=== PATIENT | male | born 1975 | race Caucasian/White ===

== ENCOUNTER 2021-05-19 19:17 | Inpatient (IN) | payer MEDICAID, OTHER ==
[~2021-05-19] VITALS: Ht 165.1 cm; Wt 76.7 kg
[2021-05-19] MEDS ORDERED: SODIUM CHLORIDE 0.9% 500 ML IV ONE (23:45)
[2021-05-20] MEDS: ACETAMINOPHEN 650MG/20.3ML UDC GT PRN (00:04)
[2021-05-20 00:44] LABS: HEMATOCRIT 37.6 % (42.0-52.0); HEMOGLOBIN 12.8 g/dL (14.0-18.0); MEAN CORPUSCULAR HEMOGLOBIN 31.3 pg (28.0-32.0); MEAN CORPUSCULAR VOLUME 91.7 fL (80.0-94.0); PLATELET 265 x1000/uL (130-400); RED CELL DISTRIBUTION WIDTH 13.8 % (11.6-14.6)
[2021-05-20 01:13] LABS: CHLORIDE 106 mEq/L (98-107)
[2021-05-20 01:17] LABS: ETHANOL BLOOD < 10 mg/dL
[2021-05-20 02:56] LABS: *AMPHETAMINES SCREEN URINE NEGATIVE (NEGATIVE); *BARBITURATES SCREEN URINE NEGATIVE (NEGATIVE); *BENZODIAZEPINES SCREEN URINE NEGATIVE (NEGATIVE); *COCAINE SCREEN URINE NEGATIVE (NEGATIVE)
[2021-05-20 02:57] LABS: CANNABINOID URINE SCREEN NEGATIVE (NEGATIVE); METHADONE URINE SCREEN NEGATIVE (NEGATIVE); OPIATES URINE SCREEN NEGATIVE (NEGATIVE); PHENCYCLIDINE URINE SCREEN NEGATIVE (NEGATIVE)
[2021-05-20] MEDS ORDERED: HYDRALAZINE 20MG/ML VIAL IV PRN (03:15)
[2021-05-20 05:38] LABS: BASOPHILS % 0.4 % (0.0-2.0); EOSINOPHILS % 0.1 % (0.0-5.0); HEMATOCRIT. 38.1 % (42.0-52.0); HEMOGLOBIN. 13.5 g/dL (14.0-18.0); LYMPHOCYTES % 12.7 % (20.0-50.0); MEAN CORPUSCULAR HEMOGLOBIN 31.8 pg (28.0-32.0); MEAN CORPUSCULAR VOLUME 90.2 fL (80.0-94.0); MEAN PLATELET VOLUME 8.2 fl (7.4-10.4); NEUTROPHILS % 79.8 % (40.0-76.0); PLATELET 261 x1000/uL (130-400); RED BLOOD CELL COUNT 4.23 mill/uL (4.7-6.1); RED CELL DISTRIBUTION WIDTH 13.8 % (11.6-14.6)
[2021-05-20 06:11] LABS: CHLORIDE 107 mEq/L (98-107)
[2021-05-20] MEDS ORDERED: OXYCODONE HCL 5MG TABLET PO PRN (07:15)
[2021-05-20] MEDS ORDERED: MORPHINE SULFATE 2 MG/ML CPJ (NOT FOR IM USE) IV PRN (07:15)
[2021-05-20] MEDS: SODIUM CHLORIDE 0.9% 1,000 ML IV SCH (11:00)
[2021-05-20 11:20] VITALS: BP 155/100
[2021-05-20 12:00] VITALS: BP 155/100
[2021-05-20 16:00] VITALS: BP 144/90
[2021-05-20] MEDS: MORPHINE SULFATE 2 MG/ML CPJ (NOT FOR IM USE) IV PRN ×2 (16:40→21:18)
[2021-05-20 20:00] VITALS: BP 136/86
[2021-05-21] VITALS: BP 144/83
[2021-05-21] MEDS: SODIUM CHLORIDE 0.9% 1,000 ML IV SCH ×2 (00:28→16:30)
[2021-05-21 04:00] VITALS: BP 128/86
[2021-05-21] MEDS ORDERED: POLYMYXIN B SULFATE 500000 UNITS/VIAL ONE (06:54)
[2021-05-21] MEDS ORDERED: BUPIVACAINE HCL 0.5% (5MG/ML) 50ML ONE (06:55)
[2021-05-21 08:00] VITALS: BP 140/90
[2021-05-21] MEDS ORDERED: MORPHINE SULFATE/PF 1MG/ML 10ML AMP ONE (10:52)
[2021-05-21] MEDS ORDERED: ROCURONIUM BROMIDE 10MG/ML VIAL 5ML IV ONE (11:08)
[2021-05-21] MEDS ORDERED: CEFAZOLIN SODIUM 1000MG/VIAL ONE (11:14)
[2021-05-21] MEDS ORDERED: DEXAMETHASONE 4MG/ML 1ML VIAL ONE (11:15)
[2021-05-21] MEDS ORDERED: GLYCOPYRROLATE 0.2 MG/ML 2ML VIAL ONE ×2 (11:37→11:51)
[2021-05-21] MEDS ORDERED: NEOSTIGMINE METHYLSULFATE 1MG/ML 10 ML VIAL ONE (11:51)
[2021-05-21] MEDS ORDERED: KETOROLAC 30MG/ML VIAL ONE (11:54)
[2021-05-21] MEDS ORDERED: MEPERIDINE HCL/PF 25MG/ML CPJ IV PRN (12:00)
[2021-05-21] MEDS ORDERED: LABETALOL 5MG/ML SYR 20 MG/4 ML SYRINGE IV PRN (12:00)
[2021-05-21] MEDS ORDERED: ONDANSETRON HCL 4MG/2ML INJ IV PRN (12:00)
[2021-05-21] MEDS: HYDROMORPHONE HCL/PF 2MG/ML CPJ IV PRN ×4 (12:17→12:42)
[2021-05-21] MEDS ORDERED: DIPHENHYDRAMINE INJ IV PRN (12:30)
[2021-05-21] MEDS ORDERED: HYDROMORPHONE PCA 10MG/50ML IV PRN (12:30)
[2021-05-21] MEDS ORDERED: ONDANSETRON INJ IV PRN (12:30)
[2021-05-21] MEDS ORDERED: NALOXONE INJ IV PRN (12:30)
[2021-05-21] MEDS ORDERED: NALOXONE HCL 0.4MG/ML VIAL IV PRN (15:15)
[2021-05-21] MEDS ORDERED: HYDRALAZINE 10 MG in SODIUM CHLORIDE 0.9% 49.5 ML IV PRN (15:15)
[2021-05-21 16:00] VITALS: BP 111/72
[2021-05-21] MEDS ORDERED: METOPROLOL TARTRATE 5MG/5ML VIAL IV NR (23:20)
[2021-05-21 23:24] VITALS: BP 124/93
[2021-05-22 02:58] LABS: CHLORIDE 107 mEq/L (98-107)
[2021-05-22 04:00] VITALS: BP 123/79
[2021-05-22] MEDS ORDERED: METOPROLOL TARTRATE 5MG/5ML VIAL IV SCH (05:15)
[2021-05-22 07:42] LABS: BASOPHILS % 0.2 % (0.0-2.0); HEMATOCRIT. 31.1 % (42.0-52.0); HEMOGLOBIN. 10.9 g/dL (14.0-18.0); LYMPHOCYTES % 9.1 % (20.0-50.0); MEAN CORPUSCULAR VOLUME 91.2 fL (80.0-94.0); MEAN PLATELET VOLUME 9.4 fl (7.4-10.4); MONOCYTES % 10.8 % (2.0-8.0); NEUTROPHILS % 79.9 % (40.0-76.0); PLATELET 300 x1000/uL (130-400); RED BLOOD CELL COUNT 3.41 mill/uL (4.7-6.1); RED CELL DISTRIBUTION WIDTH 13.6 % (11.6-14.6)
[2021-05-22 08:00] VITALS: BP 131/90
[2021-05-22] MEDS: ACETAMINOPHEN 650MG/20.3ML UDC GT PRN ×2 (08:40→17:28)
[2021-05-22] MEDS: SODIUM CHLORIDE 0.9% 1,000 ML IV SCH ×2 (08:42→14:25)
[2021-05-22 12:00] VITALS: BP 145/91
[2021-05-22 16:00] VITALS: BP 151/97
[2021-05-22] MEDS ORDERED: VANCOMYCIN 1250MG in DEXTROSE 5% WATER 250ML IV NR (20:00)
[2021-05-22 20:18] VITALS: BP 159/84
[2021-05-22] MEDS ORDERED: SODIUM CHLORIDE 0.9% 500 ML IV ONE (21:00)
[2021-05-22 21:50] LABS: HEMATOCRIT 27.2 % (42.0-52.0); HEMOGLOBIN 9.4 g/dL (14.0-18.0); MEAN CORPUSCULAR HEMOGLOBIN 31.6 pg (28.0-32.0); MEAN CORPUSCULAR VOLUME 91.8 fL (80.0-94.0); PLATELET 250 x1000/uL (130-400); RED BLOOD CELL COUNT 2.97 mill/uL (4.7-6.1); RED CELL DISTRIBUTION WIDTH 13.6 % (11.6-14.6)
[2021-05-22] MEDS: DEXT 5%/0.45% NACL KCL 20MEQ/L 1,000 ML IV SCH (22:52)
[2021-05-22] MEDS: PIPERACILLIN/TAZOBACTAM 3.375 G in DEXTROSE 5% WATER 50 ML IV SCH (22:52)
[2021-05-23 00:30] VITALS: BP_SYST 139; BP_SYST 159; BP_DIAS 84; BP_DIAS 85
[2021-05-23 04:30] VITALS: BP 136/88
[2021-05-23] MEDS: PIPERACILLIN/TAZOBACTAM 3.375 G in DEXTROSE 5% WATER 50 ML IV SCH ×3 (05:32→21:50)
[2021-05-23] MEDS: DEXT 5%/0.45% NACL KCL 20MEQ/L 1,000 ML IV SCH ×3 (05:32→21:50)
[2021-05-23 08:00] VITALS: BP 133/88
[2021-05-23 08:49] LABS: BASOPHILS % 0.4 % (0.0-2.0); EOSINOPHILS % 0.1 % (0.0-5.0); HEMATOCRIT. 23.8 % (42.0-52.0); HEMOGLOBIN. 8.5 g/dL (14.0-18.0); LYMPHOCYTES % 9.1 % (20.0-50.0); MEAN CORPUSCULAR VOLUME 89.4 fL (80.0-94.0); MEAN PLATELET VOLUME 8.9 fl (7.4-10.4); MONOCYTES % 10.1 % (2.0-8.0); NEUTROPHILS % 80.3 % (40.0-76.0); PLATELET 226 x1000/uL (130-400); RED BLOOD CELL COUNT 2.66 mill/uL (4.7-6.1); RED CELL DISTRIBUTION WIDTH 13.6 % (11.6-14.6)
[2021-05-23 09:09] LABS: CHLORIDE 108 mEq/L (98-107)
[2021-05-23] MEDS: VANCOMYCIN 750 MG PREMIX 150 ML IV SCH ×2 (09:24→20:35)
[2021-05-23] MEDS ORDERED: ONDANSETRON HCL 4MG/2ML INJ IV PRN (09:45)
[2021-05-23] MEDS ORDERED: MEPERIDINE HCL/PF 25MG/ML CPJ IV PRN ×2 (09:45)
[2021-05-23] MEDS ORDERED: HYDROMORPHONE HCL/PF 2MG/ML CPJ IV PRN (09:45)
[2021-05-23] MEDS ORDERED: MORPHINE SULFATE 2 MG/ML CPJ (NOT FOR IM USE) IV PRN (09:45)
[2021-05-23] MEDS ORDERED: SODIUM CHLORIDE 0.9% 1,000 ML IV ONE (10:00)
[2021-05-23] MEDS ORDERED: LIDOCAINE HCL 2% JELLY 5ML ONE (10:01)
[2021-05-23] MEDS ORDERED: LIDOCAINE HCL 1% 30ML VIAL (10MG/ML) ONE (10:01)
[2021-05-23] MEDS ORDERED: BACITRACIN 15GM TUBE TOP ONE (10:02)
[2021-05-23] MEDS ORDERED: BUPIVACAINE HCL/PF 0.5% (5MG/ML) 10ML ONE (10:02)
[2021-05-23] MEDS ORDERED: MIDAZOLAM HCL 2 MG/2 ML VIAL ONE (10:11)
[2021-05-23] MEDS ORDERED: PHENYLEPHRINE HCL 10 MG/ML 1ML (IV VIAL) IV ONE (10:33)
[2021-05-23] MEDS ORDERED: CEFAZOLIN SODIUM 1000MG/VIAL ONE (10:35)
[2021-05-23 13:00] VITALS: BP 134/85
[2021-05-23 13:29] LABS: HEMATOCRIT 22.9 % (42.0-52.0); MEAN CORPUSCULAR HEMOGLOBIN 31.7 pg (28.0-32.0); MEAN CORPUSCULAR VOLUME 91.3 fL (80.0-94.0); PLATELET 216 x1000/uL (130-400); RED BLOOD CELL COUNT 2.51 mill/uL (4.7-6.1); RED CELL DISTRIBUTION WIDTH 13.5 % (11.6-14.6)
[2021-05-23 16:00] VITALS: BP 130/81
[2021-05-23 20:00] VITALS: BP 143/98
[2021-05-23] MEDS ORDERED: SODIUM CHLORIDE 0.9% 500 ML IV ONE (20:00)
[2021-05-23] MEDS: LORAZEPAM 1MG TABLET PO PRN (23:44)
[2021-05-24] VITALS: BP 127/84
[2021-05-24 04:00] VITALS: BP 132/80
[2021-05-24 05:46] LABS: BASOPHILS % 0.2 % (0.0-2.0); HEMATOCRIT. 22.3 % (42.0-52.0); LYMPHOCYTES % 7.1 % (20.0-50.0); MEAN CORPUSCULAR HEMOGLOBIN 32.4 pg (28.0-32.0); MEAN CORPUSCULAR VOLUME 90.3 fL (80.0-94.0); MEAN PLATELET VOLUME 9.1 fl (7.4-10.4); MONOCYTES % 8.7 % (2.0-8.0); PLATELET 230 x1000/uL (130-400); RED BLOOD CELL COUNT 2.47 mill/uL (4.7-6.1); RED CELL DISTRIBUTION WIDTH 13.4 % (11.6-14.6)
[2021-05-24 05:47] LABS: CHLORIDE 107 mEq/L (98-107)
[2021-05-24] MEDS: DEXT 5%/0.45% NACL KCL 20MEQ/L 1,000 ML IV SCH ×3 (06:25→23:02)
[2021-05-24] MEDS: PIPERACILLIN/TAZOBACTAM 3.375 G in DEXTROSE 5% WATER 50 ML IV SCH ×3 (06:25→23:02)
[2021-05-24 08:50] VITALS: BP 125/77
[2021-05-24] MEDS: VANCOMYCIN 750 MG PREMIX 150 ML IV SCH ×3 (08:50→23:02)
[2021-05-24 12:15] VITALS: BP 122/82
[2021-05-24 16:15] VITALS: BP 140/87
[2021-05-24 20:00] VITALS: BP 125/79
[2021-05-25] VITALS: BP 118/77
[2021-05-25] MEDS: LORAZEPAM 1MG TABLET PO PRN (01:08)
[2021-05-25 04:00] VITALS: BP 130/82
[2021-05-25 05:47] LABS: BASOPHILS % 0.6 % (0.0-2.0); EOSINOPHILS % 0.4 % (0.0-5.0); HEMATOCRIT. 23.1 % (42.0-52.0); HEMOGLOBIN. 8.1 g/dL (14.0-18.0); LYMPHOCYTES % 13.1 % (20.0-50.0); MEAN CORPUSCULAR HEMOGLOBIN 31.7 pg (28.0-32.0); MEAN CORPUSCULAR VOLUME 90.2 fL (80.0-94.0); MEAN PLATELET VOLUME 8.7 fl (7.4-10.4); MONOCYTES % 10.1 % (2.0-8.0); NEUTROPHILS % 75.8 % (40.0-76.0); PLATELET 260 x1000/uL (130-400); RED BLOOD CELL COUNT 2.56 mill/uL (4.7-6.1); RED CELL DISTRIBUTION WIDTH 13.5 % (11.6-14.6)
[2021-05-25] MEDS: DEXT 5%/0.45% NACL KCL 20MEQ/L 1,000 ML IV SCH ×3 (06:02→19:13)
[2021-05-25] MEDS: VANCOMYCIN 750 MG PREMIX 150 ML IV SCH ×2 (06:03→13:18)
[2021-05-25] MEDS: PIPERACILLIN/TAZOBACTAM 3.375 G in DEXTROSE 5% WATER 50 ML IV SCH ×3 (06:03→20:52)
[2021-05-25 07:01] LABS: CHLORIDE 106 mEq/L (98-107)
[2021-05-25 08:00] VITALS: BP 132/88
[2021-05-25] MEDS: HYDROCODONE/ACETAMINOPHEN 5/325MG TABLET PO PRN ×2 (08:17→16:31)
[2021-05-25 12:00] VITALS: BP 125/73
[2021-05-25 16:00] VITALS: BP 122/85
[2021-05-25 20:00] VITALS: BP 122/82
[2021-05-26] MEDS: HYDROCODONE/ACETAMINOPHEN 5/325MG TABLET PO PRN (02:53)
[2021-05-26] MEDS: PIPERACILLIN/TAZOBACTAM 3.375 G in DEXTROSE 5% WATER 50 ML IV SCH ×3 (05:56→22:21)
[2021-05-26] MEDS: DEXT 5%/0.45% NACL KCL 20MEQ/L 1,000 ML IV SCH ×3 (05:57→15:37)
[2021-05-26 06:30] LABS: BASOPHILS % 0.5 % (0.0-2.0); EOSINOPHILS % 0.9 % (0.0-5.0); HEMATOCRIT. 23.8 % (42.0-52.0); HEMOGLOBIN. 8.4 g/dL (14.0-18.0); MEAN CORPUSCULAR HEMOGLOBIN 31.8 pg (28.0-32.0); MEAN CORPUSCULAR VOLUME 90.3 fL (80.0-94.0); MEAN PLATELET VOLUME 8.9 fl (7.4-10.4); MONOCYTES % 9.6 % (2.0-8.0); PLATELET 286 x1000/uL (130-400); RED BLOOD CELL COUNT 2.64 mill/uL (4.7-6.1); RED CELL DISTRIBUTION WIDTH 13.3 % (11.6-14.6)
[2021-05-26 06:37] LABS: CHLORIDE 105 mEq/L (98-107)
[2021-05-26 08:00] VITALS: BP 120/80
[2021-05-26 12:00] VITALS: BP 126/81
[2021-05-26 16:00] VITALS: BP 124/73
[2021-05-26 20:00] VITALS: BP 133/78
[2021-05-27] VITALS: BP 119/80
[2021-05-27 04:00] VITALS: BP 122/76
[2021-05-27] MEDS: PIPERACILLIN/TAZOBACTAM 3.375 G in DEXTROSE 5% WATER 50 ML IV SCH (06:38)
[2021-05-27] MEDS: DEXT 5%/0.45% NACL KCL 20MEQ/L 1,000 ML IV SCH (06:38)
[2021-05-27 08:00] VITALS: BP 128/85
[2021-05-27 12:00] VITALS: BP 120/83
[2021-05-27 15:03] VITALS: BP 128/81
[2021-05-27] MEDS ORDERED: PROP10TA10 MT (15:04)
[2021-05-27] MEDS ORDERED: NALOXONE HCL 0.4MG/ML VIAL IV PRN (15:15)
[2021-05-27 16:00] VITALS: BP 116/81
[2021-05-27] MEDS ORDERED: PROPRANOLOL HCL 10MG TABLET PO SCH (21:00)
== END 2021-05-27 16:45 | disposition home or self-care (01) | DRG 231 ==
LOC: ER 19:17 → MICUSO 23:20 → EDBEDREQ 23:25 → EDBEDREQTM 23:25 → 6EST 05-20 11:42 → 6WST 05-21 23:13
PROVIDERS: ADMIT Internal Medicine; ATTEND Internal Medicine
PROC: 0DSP0ZZ Reposition Rectum, Open Approach (ICD-10-PCS; principal; 2021-05-21)
PROC: 06BY0ZC Excision of Hemorrhoidal Plexus, Open Approach (ICD-10-PCS; 2021-05-23)
DX: K62.3 Rectal prolapse (principal); N17.9 Acute kidney failure, unspecified; D62 Acute posthemorrhagic anemia; F15.90 Other stimulant use, unspecified, uncomplicated; F10.10 Alcohol abuse, uncomplicated; R73.03 Prediabetes; R73.9 Hyperglycemia, unspecified; F41.9 Anxiety disorder, unspecified; R00.0 Tachycardia, unspecified; Z20.822 Contact with and (suspected) exposure to COVID-19; K64.5 Perianal venous thrombosis; I16.0 Hypertensive urgency; Z79.899 Other long term (current) drug therapy; Z71.51 Drug abuse counseling and surveillance of drug abuser
CPT/HCPCS: 36415; 71045; 80048; 80053; 80202; 80305; 80320; 82947; 82951; 83036; 84305; 85025; 85027; 86850; 86900; 87426; 88304; 93005; 99285; J0360; J0690; J1100; J1170; J1885; J2175; J2250; J2270; J2274; J2370; J2405; J2543; J2710; J3370; J3490; J7030; J7040; J7060; G0480

== ENCOUNTER 2021-06-04 09:51 | Inpatient (IN) | payer MEDICAID ==
[~2021-06-04] VITALS: Ht 154.9 cm; Wt 64.4 kg
[~2021-06-04 09:51] MED LIST: PROP10TA10 MT
[2021-06-04] MEDS ORDERED: ONDANSETRON HCL 4MG/2ML INJ IV STA (11:48)
[2021-06-04] MEDS ORDERED: MORPHINE SULFATE 4 MG/ML CPJ (NOT FOR IM USE) IV STA (11:48)
[2021-06-04] MEDS ORDERED: SODIUM CHLORIDE 0.9% 1,000 ML IV ONE (12:00)
[2021-06-04 12:19] LABS: BASOPHILS % 0.6 % (0.0-2.0); EOSINOPHILS % 0.7 % (0.0-5.0); HEMATOCRIT. 28.3 % (42.0-52.0); HEMOGLOBIN. 9.7 g/dL (14.0-18.0); LYMPHOCYTES % 7.3 % (20.0-50.0); MEAN CORPUSCULAR HEMOGLOBIN 30.5 pg (28.0-32.0); MEAN CORPUSCULAR VOLUME 88.6 fL (80.0-94.0); MEAN PLATELET VOLUME 7.1 fl (7.4-10.4); MONOCYTES % 5.8 % (2.0-8.0); NEUTROPHILS % 85.6 % (40.0-76.0); PLATELET 786 x1000/uL (130-400); RED BLOOD CELL COUNT 3.19 mill/uL (4.7-6.1); RED CELL DISTRIBUTION WIDTH 14.2 % (11.6-14.6)
[2021-06-04 12:27] LABS: CHLORIDE 100 mEq/L (98-107)
[2021-06-04 12:29] LABS: D-DIMER 3.14 mg/L FEU (<0.50); INR 1.1; PARTIAL THROMBOPLASTIN TIME 29.6 sec (23.4-31.0); PROTHROMBIN TIME 11.4 sec (9.6-11.0)
[2021-06-04] MEDS ORDERED: IOHEXOL-350 100 ML BOTTLE ONE (16:48)
[2021-06-04] MEDS ORDERED: ENOXAPARIN 100MG/ML SYR SUBCUT ONE (17:45)
[2021-06-04 18:30] VITALS: BP 127/86
[2021-06-04] MEDS ORDERED: DOCUSATE SODIUM 100MG CAPSULE PO PRN (18:30)
[2021-06-04] MEDS ORDERED: CLONIDINE 0.1MG TABLET PO PRN (18:30)
[2021-06-04] MEDS ORDERED: IPRATROPIUM/ALBUTEROL 0.5-3(2.5)MG/3ML NEB NEB PRN (18:30)
[2021-06-04] MEDS ORDERED: ONDANSETRON HCL 4MG/2ML INJ IV PRN (18:30)
[2021-06-04] MEDS ORDERED: LORAZEPAM 2MG/ML CPJ IV PRN (18:30)
[2021-06-04] MEDS ORDERED: GUAIFENESIN 200MG/10ML SUGAR FREE UDC PO PRN (18:30)
[2021-06-04] MEDS ORDERED: NITROGLYCERIN 0.4MG TABLET SL SL PRN (18:30)
[2021-06-04] MEDS ORDERED: MAGNESIUM/ALUMINUM HYDROXIDE/SIMETHICONE 30ML UDC PO PRN (18:30)
[2021-06-04] MEDS ORDERED: KETOROLAC 15MG/ML VIAL IV PRN (18:30)
[2021-06-04 19:23] LABS: TOTAL IRON BINDING CAPACITY 301 ug/dL (250-450)
[2021-06-04 19:46] LABS: FOLIC ACID (FOLATE) SERUM 14.7 ng/mL (>5.38)
[2021-06-04 20:00] VITALS: BP 114/73
[2021-06-04] MEDS ORDERED: ZOLPIDEM TARTRATE 5MG TABLET PO PRN (21:00)
[2021-06-04] MEDS: PANTOPRAZOLE SODIUM 40 MG/VIAL IV SCH (21:46)
[2021-06-04] MEDS: SUCRALFATE 1 G/10 ML UDC PO SCH (21:46)
[2021-06-04] MEDS: METOPROLOL TARTRATE 25MG TABLET PO SCH (21:47)
[2021-06-04 23:43] LABS: CREATINE KINASE 26 IU/L (39-308)
[2021-06-04 23:44] LABS: CREATINE KINASE MB FRACTION 1.1 ng/mL (0.5-3.6)
[2021-06-05] VITALS: BP 121/76
[2021-06-05 04:00] VITALS: BP 132/79
[2021-06-05] MEDS: SUCRALFATE 1 G/10 ML UDC PO SCH ×4 (06:16→21:21)
[2021-06-05] MEDS: ENOXAPARIN 80MG/0.8ML SYR SUBCUT SCH ×2 (06:17→18:24)
[2021-06-05 07:26] LABS: HEMATOCRIT. 24.6 % (42.0-52.0); HEMOGLOBIN. 8.5 g/dL (14.0-18.0); MEAN CORPUSCULAR HEMOGLOBIN 30.4 pg (28.0-32.0); MEAN CORPUSCULAR VOLUME 87.8 fL (80.0-94.0); MEAN PLATELET VOLUME 7.3 fl (7.4-10.4); PLATELET 737 x1000/uL (130-400); RED BLOOD CELL COUNT 2.81 mill/uL (4.7-6.1); RED CELL DISTRIBUTION WIDTH 14.3 % (11.6-14.6)
[2021-06-05 08:00] VITALS: BP 134/82
[2021-06-05 08:09] LABS: CHLORIDE 101 mEq/L (98-107)
[2021-06-05 08:21] LABS: PHOSPHORUS 3.2 mg/dL (2.5-4.9)
[2021-06-05 08:22] LABS: LDL CHOLESTEROL 67 mg/dL (5-100)
[2021-06-05 08:23] LABS: CREATINE KINASE MB FRACTION < 1.0 ng/mL (0.5-3.6)
[2021-06-05 08:24] LABS: CREATINE KINASE 24 IU/L (39-308); HDL CHOLESTEROL 23 mg/dL (40-59)
[2021-06-05 08:47] LABS: *AMPHETAMINES SCREEN URINE NEGATIVE (NEGATIVE); *BARBITURATES SCREEN URINE NEGATIVE (NEGATIVE); *BENZODIAZEPINES SCREEN URINE NEGATIVE (NEGATIVE); *COCAINE SCREEN URINE NEGATIVE (NEGATIVE); CANNABINOID URINE SCREEN NEGATIVE (NEGATIVE); METHADONE URINE SCREEN NEGATIVE (NEGATIVE); OPIATES URINE SCREEN NEGATIVE (NEGATIVE); PHENCYCLIDINE URINE SCREEN NEGATIVE (NEGATIVE)
[2021-06-05] MEDS: METOPROLOL TARTRATE 25MG TABLET PO SCH ×2 (08:47→21:20)
[2021-06-05] MEDS: PANTOPRAZOLE SODIUM 40 MG/VIAL IV SCH ×2 (08:47→21:20)
[2021-06-05 12:00] VITALS: BP 129/81
[2021-06-05 12:55] LABS: PLATELET ESTIMATE INCREASED
[2021-06-05 16:00] VITALS: BP 132/76
[2021-06-05 20:00] VITALS: BP 131/81
[2021-06-05 21:41] LABS: HEMATOCRIT. 24.8 % (42.0-52.0); HEMOGLOBIN. 8.5 g/dL (14.0-18.0); MEAN CORPUSCULAR HEMOGLOBIN 30.3 pg (28.0-32.0); MEAN CORPUSCULAR VOLUME 87.8 fL (80.0-94.0); MEAN PLATELET VOLUME 7.4 fl (7.4-10.4); PLATELET 736 x1000/uL (130-400); RED BLOOD CELL COUNT 2.82 mill/uL (4.7-6.1); RED CELL DISTRIBUTION WIDTH 14.3 % (11.6-14.6)
[2021-06-05 22:23] LABS: PLATELET ESTIMATE INCREASED
[2021-06-06] VITALS: BP 121/67
[2021-06-06] MEDS: ACETAMINOPHEN 325MG TABLET PO PRN ×2 (01:28→21:38)
[2021-06-06 02:14] LABS: HEMATOCRIT. 24.2 % (42.0-52.0); HEMOGLOBIN. 8.7 g/dL (14.0-18.0); MEAN CORPUSCULAR HEMOGLOBIN 31.6 pg (28.0-32.0); MEAN CORPUSCULAR VOLUME 87.7 fL (80.0-94.0); MEAN PLATELET VOLUME 7.5 fl (7.4-10.4); PLATELET 687 x1000/uL (130-400); RED BLOOD CELL COUNT 2.76 mill/uL (4.7-6.1); RED CELL DISTRIBUTION WIDTH 14.4 % (11.6-14.6)
[2021-06-06 04:00] VITALS: BP 120/81
[2021-06-06] MEDS: SUCRALFATE 1 G/10 ML UDC PO SCH ×4 (06:44→21:38)
[2021-06-06] MEDS: ENOXAPARIN 80MG/0.8ML SYR SUBCUT SCH ×2 (06:44→17:22)
[2021-06-06 06:50] LABS: BASOPHILS % 0.7 % (0.0-2.0); EOSINOPHILS % 2.7 % (0.0-5.0); HEMATOCRIT. 24.2 % (42.0-52.0); HEMOGLOBIN. 8.6 g/dL (14.0-18.0); LYMPHOCYTES % 7.3 % (20.0-50.0); MEAN CORPUSCULAR VOLUME 87.7 fL (80.0-94.0); MEAN PLATELET VOLUME 7.5 fl (7.4-10.4); MONOCYTES % 7.7 % (2.0-8.0); NEUTROPHILS % 81.6 % (40.0-76.0); PLATELET 661 x1000/uL (130-400); RED BLOOD CELL COUNT 2.76 mill/uL (4.7-6.1); RED CELL DISTRIBUTION WIDTH 14.5 % (11.6-14.6)
[2021-06-06 06:52] LABS: CHLORIDE 101 mEq/L (98-107)
[2021-06-06 07:02] LABS: PHOSPHORUS 3.2 mg/dL (2.5-4.9)
[2021-06-06 07:03] LABS: TOTAL IRON BINDING CAPACITY 219 ug/dL (250-450)
[2021-06-06 08:00] VITALS: BP 128/77
[2021-06-06] MEDS: PANTOPRAZOLE SODIUM 40 MG/VIAL IV SCH ×2 (08:52→21:38)
[2021-06-06] MEDS: METOPROLOL TARTRATE 25MG TABLET PO SCH ×2 (08:52→21:39)
[2021-06-06 12:00] VITALS: BP 129/73
[2021-06-06 13:00] LABS: PLATELET ESTIMATE INCREASED
[2021-06-06 13:01] LABS: HEMATOCRIT. 26.7 % (42.0-52.0); HEMOGLOBIN. 9.2 g/dL (14.0-18.0); MEAN CORPUSCULAR HEMOGLOBIN 30.3 pg (28.0-32.0); MEAN CORPUSCULAR VOLUME 88.1 fL (80.0-94.0); MEAN PLATELET VOLUME 7.1 fl (7.4-10.4); PLATELET 732 x1000/uL (130-400); RED BLOOD CELL COUNT 3.03 mill/uL (4.7-6.1); RED CELL DISTRIBUTION WIDTH 14.7 % (11.6-14.6)
[2021-06-06 13:33] LABS: PLATELET ESTIMATE INCREASED
[2021-06-06 16:00] VITALS: BP 131/82
[2021-06-06 20:00] VITALS: BP 131/82
[2021-06-07] VITALS (7 sets, daily range): BP systolic 114–133; BP diastolic 63–76
[2021-06-07] MEDS: ENOXAPARIN 80MG/0.8ML SYR SUBCUT SCH ×2 (06:17→17:48)
[2021-06-07] MEDS: SUCRALFATE 1 G/10 ML UDC PO SCH ×4 (06:17→21:13)
[2021-06-07 07:07] LABS: CHLORIDE 100 mEq/L (98-107)
[2021-06-07] MEDS: PANTOPRAZOLE SODIUM 40 MG/VIAL IV SCH ×2 (08:40→21:12)
[2021-06-07] MEDS: METOPROLOL TARTRATE 25MG TABLET PO SCH ×2 (08:41→21:12)
[2021-06-07] MEDS: ACETAMINOPHEN 325MG TABLET PO PRN ×3 (08:41→21:12)
[2021-06-07] MEDS ORDERED: POTASSIUM CHLORIDE 20MEQ TABLET SR PO NR (09:45)
[2021-06-07 11:30] LABS: CLARITY URINE CLEAR (CLEAR); COLOR URINE DARK YELLOW (YELLOW); KETONES URINE 1+ (NEGATIVE); LEUKOCYTE ESTERASE URINE NEGATIVE (NEGATIVE); NITRITE URINE NEGATIVE (NEGATIVE); OCCULT BLOOD URINE NEGATIVE (NEGATIVE); PH URINE 6.5 (4.5-8.0); PROTEIN URINE TRACE (NEGATIVE); SPECIFIC GRAVITY URINE 1.016 (1.005-1.030)
[2021-06-07 11:55] LABS: HEMATOCRIT. 24.8 % (42.0-52.0); HEMOGLOBIN. 8.4 g/dL (14.0-18.0); MEAN CORPUSCULAR HEMOGLOBIN 29.6 pg (28.0-32.0); MEAN CORPUSCULAR VOLUME 87.2 fL (80.0-94.0); MEAN PLATELET VOLUME 7.7 fl (7.4-10.4); PLATELET 630 x1000/uL (130-400); RED BLOOD CELL COUNT 2.84 mill/uL (4.7-6.1); RED CELL DISTRIBUTION WIDTH 14.7 % (11.6-14.6)
[2021-06-07] MEDS: VANCOMYCIN 750 MG PREMIX 150 ML IV SCH ×2 (15:35→23:27)
[2021-06-07 15:39] LABS: PLATELET ESTIMATE INCREASED
[2021-06-07] MEDS: PIPERACILLIN/TAZOBACTAM 3.375 G in DEXTROSE 5% WATER 50 ML IV SCH ×2 (17:49→21:13)
[2021-06-08] MEDS: ACETAMINOPHEN 325MG TABLET PO PRN ×4 (03:59→21:44)
[2021-06-08 04:02] VITALS: BP 124/65
[2021-06-08] MEDS: PIPERACILLIN/TAZOBACTAM 3.375 G in DEXTROSE 5% WATER 50 ML IV SCH ×3 (05:59→21:04)
[2021-06-08] MEDS: ENOXAPARIN 80MG/0.8ML SYR SUBCUT SCH ×2 (06:00→21:05)
[2021-06-08] MEDS: VANCOMYCIN 750 MG PREMIX 150 ML IV SCH (06:00)
[2021-06-08 06:05] LABS: CHLORIDE 99 mEq/L (98-107)
[2021-06-08] MEDS: SUCRALFATE 1 G/10 ML UDC PO SCH ×4 (06:30→21:04)
[2021-06-08 08:00] VITALS: BP 116/65
[2021-06-08] MEDS: PANTOPRAZOLE SODIUM 40 MG/VIAL IV SCH ×2 (09:16→21:04)
[2021-06-08] MEDS: METOPROLOL TARTRATE 25MG TABLET PO SCH ×2 (09:17→21:00)
[2021-06-08 12:00] VITALS: BP 111/72
[2021-06-08] MEDS: VANCOMYCIN 1 G PREMIX 200 ML IV SCH ×2 (14:11→21:05)
[2021-06-08 16:20] VITALS: BP 112/67
[2021-06-08 20:00] VITALS: BP 105/64
[2021-06-08 23:52] VITALS: BP 115/63
[2021-06-09 03:59] VITALS: BP 115/67
[2021-06-09] MEDS: PIPERACILLIN/TAZOBACTAM 3.375 G in DEXTROSE 5% WATER 50 ML IV SCH ×3 (05:07→21:42)
[2021-06-09] MEDS: VANCOMYCIN 1 G PREMIX 200 ML IV SCH (05:07)
[2021-06-09] MEDS: SUCRALFATE 1 G/10 ML UDC PO SCH ×4 (06:20→21:42)
[2021-06-09 06:44] LABS: CHLORIDE 99 mEq/L (98-107)
[2021-06-09 08:00] VITALS: BP 117/73
[2021-06-09] MEDS: PANTOPRAZOLE SODIUM 40 MG/VIAL IV SCH ×2 (09:02→21:44)
[2021-06-09] MEDS: METOPROLOL TARTRATE 25MG TABLET PO SCH ×2 (09:02→21:00)
[2021-06-09] MEDS: ENOXAPARIN 80MG/0.8ML SYR SUBCUT SCH ×2 (09:03→21:43)
[2021-06-09 12:00] VITALS: BP 104/68
[2021-06-09] MEDS: ACETAMINOPHEN 325MG TABLET PO PRN ×3 (12:41→22:57)
[2021-06-09] MEDS: VANCOMYCIN 1250MG in DEXTROSE 5% WATER 250ML IV SCH ×2 (15:23→22:57)
[2021-06-09 16:00] VITALS: BP 11/74
[2021-06-09 20:00] VITALS: BP 89/68
[2021-06-10] VITALS: BP 113/70
[2021-06-10 04:00] VITALS: BP 107/63
[2021-06-10 06:09] LABS: HEMATOCRIT. 24.1 % (42.0-52.0); HEMOGLOBIN. 8.2 g/dL (14.0-18.0); MEAN CORPUSCULAR HEMOGLOBIN 29.2 pg (28.0-32.0); MEAN CORPUSCULAR VOLUME 85.5 fL (80.0-94.0); MEAN PLATELET VOLUME 7.9 fl (7.4-10.4); PLATELET 500 x1000/uL (130-400); RED BLOOD CELL COUNT 2.82 mill/uL (4.7-6.1); RED CELL DISTRIBUTION WIDTH 15.4 % (11.6-14.6)
[2021-06-10] MEDS: ACETAMINOPHEN 325MG TABLET PO PRN ×3 (06:11→20:52)
[2021-06-10] MEDS: SUCRALFATE 1 G/10 ML UDC PO SCH ×4 (06:11→20:52)
[2021-06-10] MEDS: VANCOMYCIN 1250MG in DEXTROSE 5% WATER 250ML IV SCH ×3 (06:12→22:22)
[2021-06-10] MEDS: PIPERACILLIN/TAZOBACTAM 3.375 G in DEXTROSE 5% WATER 50 ML IV SCH ×3 (06:12→22:00)
[2021-06-10 06:19] LABS: INR 1.1; PROTHROMBIN TIME 11.9 sec (9.6-11.0)
[2021-06-10 06:26] LABS: CHLORIDE 98 mEq/L (98-107)
[2021-06-10 08:00] VITALS: BP 109/73
[2021-06-10] MEDS: ENOXAPARIN 80MG/0.8ML SYR SUBCUT SCH ×2 (08:23→20:53)
[2021-06-10] MEDS ORDERED: POTASSIUM CHLORIDE 20MEQ TABLET SR PO NR (08:30)
[2021-06-10] MEDS: METOPROLOL TARTRATE 25MG TABLET PO SCH ×2 (09:42→22:22)
[2021-06-10] MEDS: PANTOPRAZOLE SODIUM 40 MG/VIAL IV SCH ×2 (09:42→20:52)
[2021-06-10 12:00] VITALS: BP 112/72
[2021-06-10 13:30] LABS: NUCLEATED RED BLOOD CELLS 1 /100 WBC; PLATELET ESTIMATE INCREASED
[2021-06-10 16:00] VITALS: BP 113/68
[2021-06-10] MEDS ORDERED: HYDROMORPHONE HCL/PF 2MG/ML CPJ IV PRN (17:15)
[2021-06-10] MEDS ORDERED: ONDANSETRON HCL 4MG/2ML INJ IV PRN (17:15)
[2021-06-10] MEDS ORDERED: LABETALOL 5MG/ML SYR 20 MG/4 ML SYRINGE IV PRN (17:15)
[2021-06-10] MEDS ORDERED: MEPERIDINE HCL/PF 25MG/ML CPJ IV PRN (17:15)
[2021-06-10 20:00] VITALS: BP 112/62
[2021-06-11] VITALS: BP 111/71
[2021-06-11 04:00] VITALS: BP 112/73
[2021-06-11 04:12] LABS: OVA & PARASITE EXAM Final report (.)
[2021-06-11] MEDS: ACETAMINOPHEN 325MG TABLET PO PRN (04:13)
[2021-06-11] MEDS: PIPERACILLIN/TAZOBACTAM 3.375 G in DEXTROSE 5% WATER 50 ML IV SCH ×3 (06:00→22:34)
[2021-06-11] MEDS: SUCRALFATE 1 G/10 ML UDC PO SCH ×4 (06:58→20:21)
[2021-06-11] MEDS: VANCOMYCIN 1250MG in DEXTROSE 5% WATER 250ML IV SCH (06:58)
[2021-06-11 07:19] LABS: HEMATOCRIT. 24.1 % (42.0-52.0); HEMOGLOBIN. 8.1 g/dL (14.0-18.0); MEAN CORPUSCULAR HEMOGLOBIN 28.9 pg (28.0-32.0); MEAN CORPUSCULAR VOLUME 86.2 fL (80.0-94.0); MEAN PLATELET VOLUME 8.2 fl (7.4-10.4); PLATELET 506 x1000/uL (130-400); RED BLOOD CELL COUNT 2.79 mill/uL (4.7-6.1); RED CELL DISTRIBUTION WIDTH 15.8 % (11.6-14.6)
[2021-06-11 07:30] LABS: CHLORIDE 100 mEq/L (98-107)
[2021-06-11 08:00] VITALS: BP 129/78
[2021-06-11] MEDS: ENOXAPARIN 80MG/0.8ML SYR SUBCUT SCH ×2 (08:25→20:21)
[2021-06-11] MEDS: PANTOPRAZOLE SODIUM 40 MG/VIAL IV SCH ×2 (08:26→20:21)
[2021-06-11] MEDS: METOPROLOL TARTRATE 25MG TABLET PO SCH ×2 (08:26→20:21)
[2021-06-11 12:00] VITALS: BP 111/65
[2021-06-11] MEDS ORDERED: VANCOMYCIN 1 G PREMIX 200 ML IV SCH (14:00)
[2021-06-11] MEDS ORDERED: DIATR MEGLU/DIATRIZOATE SOLN 30ML PO SCH ×2 (15:30→16:30)
[2021-06-11 16:00] VITALS: BP 117/71
[2021-06-11 16:13] LABS: PLATELET ESTIMATE INCREASED
[2021-06-11] MEDS ORDERED: POTASSIUM CHLORIDE 20MEQ TABLET SR PO NR (18:00)
[2021-06-11 20:00] VITALS: BP 119/68
[2021-06-12] VITALS: BP 122/64
[2021-06-12 04:00] VITALS: BP 128/73
[2021-06-12] MEDS: SUCRALFATE 1 G/10 ML UDC PO SCH ×4 (05:09→21:14)
[2021-06-12] MEDS: PIPERACILLIN/TAZOBACTAM 3.375 G in DEXTROSE 5% WATER 50 ML IV SCH (05:09)
[2021-06-12 07:13] LABS: HEMATOCRIT. 25.4 % (42.0-52.0); HEMOGLOBIN. 8.7 g/dL (14.0-18.0); MEAN CORPUSCULAR HEMOGLOBIN 29.2 pg (28.0-32.0); MEAN CORPUSCULAR VOLUME 85.7 fL (80.0-94.0); MEAN PLATELET VOLUME 8.1 fl (7.4-10.4); PLATELET 587 x1000/uL (130-400); RED BLOOD CELL COUNT 2.96 mill/uL (4.7-6.1); RED CELL DISTRIBUTION WIDTH 16.1 % (11.6-14.6)
[2021-06-12 07:21] LABS: CHLORIDE 99 mEq/L (98-107)
[2021-06-12 08:00] VITALS: BP 128/76
[2021-06-12] MEDS: ENOXAPARIN 80MG/0.8ML SYR SUBCUT SCH ×2 (08:50→21:15)
[2021-06-12] MEDS: PANTOPRAZOLE SODIUM 40 MG/VIAL IV SCH ×2 (08:50→21:14)
[2021-06-12] MEDS: METOPROLOL TARTRATE 25MG TABLET PO SCH ×2 (08:50→21:14)
[2021-06-12] MEDS: ACETAMINOPHEN 325MG TABLET PO PRN ×2 (08:50→21:15)
[2021-06-12 10:56] LABS: PLATELET ESTIMATE INCREASED
[2021-06-12 12:00] VITALS: BP 119/74
[2021-06-12 16:00] VITALS: BP 119/78
[2021-06-12 20:00] VITALS: BP 120/52
[2021-06-12] MEDS: MEROPENEM 1,000 MG in SODIUM CHLORIDE 0.9% 100 ML IV SCH (23:44)
[2021-06-13] VITALS (15 sets, daily range): BP systolic 97–121; BP diastolic 57–80
[2021-06-13 05:57] LABS: HEMATOCRIT. 25.2 % (42.0-52.0); HEMOGLOBIN. 8.4 g/dL (14.0-18.0); MEAN CORPUSCULAR HEMOGLOBIN 29.1 pg (28.0-32.0); MEAN CORPUSCULAR VOLUME 87.6 fL (80.0-94.0); MEAN PLATELET VOLUME 8.1 fl (7.4-10.4); PLATELET 516 x1000/uL (130-400); RED BLOOD CELL COUNT 2.88 mill/uL (4.7-6.1); RED CELL DISTRIBUTION WIDTH 16.1 % (11.6-14.6)
[2021-06-13 06:06] LABS: CHLORIDE 101 mEq/L (98-107)
[2021-06-13] MEDS: SUCRALFATE 1 G/10 ML UDC PO SCH ×4 (06:35→22:22)
[2021-06-13] MEDS: ACETAMINOPHEN 325MG TABLET PO PRN (06:35)
[2021-06-13] MEDS: ENOXAPARIN 80MG/0.8ML SYR SUBCUT SCH ×2 (09:00→22:28)
[2021-06-13] MEDS: PANTOPRAZOLE SODIUM 40 MG/VIAL IV SCH ×2 (09:18→22:23)
[2021-06-13] MEDS: MEROPENEM 1,000 MG in SODIUM CHLORIDE 0.9% 100 ML IV SCH ×2 (09:18→16:00)
[2021-06-13] MEDS: METOPROLOL TARTRATE 25MG TABLET PO SCH ×2 (09:23→22:23)
[2021-06-13 10:00] LABS: PLATELET ESTIMATE INCREASED
[2021-06-13] MEDS ORDERED: LIDOCAINE HCL 1% 10 MG/ML 10ML VIAL ONE ×3 (11:27→13:11)
[2021-06-13] MEDS ORDERED: SODIUM BICARBONATE 4% (2.4MEQ) 5ML VIAL IV ONE (11:28)
[2021-06-13] MEDS ORDERED: FENTANYL CITRATE/PF 50MCG/ML 2ML VIAL IV ONE (13:00)
[2021-06-13] MEDS ORDERED: FENTANYL CITRATE/PF 50MCG/ML 2ML VIAL ONE (13:10)
[2021-06-13] MEDS ORDERED: FENTANYL CITRATE/PF 50MCG/ML 2ML VIAL IV SCH (14:15)
[2021-06-13 16:37] LABS: INR 1.1; PARTIAL THROMBOPLASTIN TIME 28.8 sec (23.4-31.0); PROTHROMBIN TIME 11.4 sec (9.6-11.0)
[2021-06-14] VITALS: BP 111/71
[2021-06-14] MEDS: MEROPENEM 1,000 MG in SODIUM CHLORIDE 0.9% 100 ML IV SCH ×3 (00:45→15:39)
[2021-06-14 04:00] VITALS: BP 118/76
[2021-06-14 08:00] VITALS: BP 120/72
[2021-06-14 08:14] LABS: BASOPHILS % 0.7 % (0.0-2.0); EOSINOPHILS % 2.7 % (0.0-5.0); HEMOGLOBIN. 8.2 g/dL (14.0-18.0); LYMPHOCYTES % 7.5 % (20.0-50.0); MEAN CORPUSCULAR HEMOGLOBIN 29.6 pg (28.0-32.0); MEAN CORPUSCULAR VOLUME 86.8 fL (80.0-94.0); MONOCYTES % 7.5 % (2.0-8.0); NEUTROPHILS % 81.6 % (40.0-76.0); PLATELET 548 x1000/uL (130-400); RED BLOOD CELL COUNT 2.77 mill/uL (4.7-6.1); RED CELL DISTRIBUTION WIDTH 15.9 % (11.6-14.6)
[2021-06-14 08:19] LABS: CHLORIDE 105 mEq/L (98-107)
[2021-06-14] MEDS: PANTOPRAZOLE SODIUM 40 MG/VIAL IV SCH ×2 (08:53→21:15)
[2021-06-14] MEDS: SUCRALFATE 1 G/10 ML UDC PO SCH ×4 (08:53→21:15)
[2021-06-14] MEDS: METOPROLOL TARTRATE 25MG TABLET PO SCH ×2 (08:53→21:15)
[2021-06-14] MEDS: ENOXAPARIN 80MG/0.8ML SYR SUBCUT SCH ×2 (08:54→21:15)
[2021-06-14 12:00] VITALS: BP 120/72
[2021-06-14 16:00] VITALS: BP 122/74
[2021-06-14 20:00] VITALS: BP 120/76
[2021-06-15] VITALS: BP 114/79
[2021-06-15] MEDS: MEROPENEM 1,000 MG in SODIUM CHLORIDE 0.9% 100 ML IV SCH ×4 (01:32→23:18)
[2021-06-15 04:00] VITALS: BP 120/81
[2021-06-15] MEDS: SUCRALFATE 1 G/10 ML UDC PO SCH ×4 (06:25→21:09)
[2021-06-15 07:55] LABS: CHLORIDE 107 mEq/L (98-107)
[2021-06-15 08:00] VITALS: BP 127/85
[2021-06-15] MEDS: PANTOPRAZOLE SODIUM 40 MG/VIAL IV SCH ×2 (08:13→21:09)
[2021-06-15] MEDS: ENOXAPARIN 80MG/0.8ML SYR SUBCUT SCH ×2 (08:14→21:08)
[2021-06-15] MEDS: METOPROLOL TARTRATE 25MG TABLET PO SCH ×2 (08:18→21:09)
[2021-06-15 12:00] VITALS: BP 120/73
[2021-06-15 16:00] VITALS: BP 128/78
[2021-06-15 19:48] VITALS: BP 123/75
[2021-06-16] VITALS: BP 126/84
[2021-06-16 04:00] VITALS: BP 120/83
[2021-06-16] MEDS: SUCRALFATE 1 G/10 ML UDC PO SCH ×4 (06:23→21:23)
[2021-06-16 07:55] VITALS: BP 129/88
[2021-06-16] MEDS: MEROPENEM 1,000 MG in SODIUM CHLORIDE 0.9% 100 ML IV SCH (08:23)
[2021-06-16] MEDS: METOPROLOL TARTRATE 25MG TABLET PO SCH ×2 (08:24→21:23)
[2021-06-16] MEDS: PANTOPRAZOLE SODIUM 40 MG/VIAL IV SCH ×2 (08:24→21:25)
[2021-06-16] MEDS: ENOXAPARIN 80MG/0.8ML SYR SUBCUT SCH ×2 (08:24→21:24)
[2021-06-16 11:39] VITALS: BP 133/78
[2021-06-16] MEDS ORDERED: IOHEXOL-300 50 ML BOTTLE IV ONE (14:27)
[2021-06-16] MEDS: PIPERACILLIN/TAZOBACTAM 3.375 G in DEXTROSE 5% WATER 50 ML IV SCH ×2 (15:34→21:23)
[2021-06-16 15:58] VITALS: BP 118/81
[2021-06-16 20:00] VITALS: BP 125/79
[2021-06-17] VITALS (7 sets, daily range): BP systolic 121–128; BP diastolic 79–89
[2021-06-17 06:10] LABS: CHLORIDE 107 mEq/L (98-107)
[2021-06-17 06:18] LABS: BASOPHILS % 1.2 % (0.0-2.0); EOSINOPHILS % 3.2 % (0.0-5.0); HEMATOCRIT. 26.5 % (42.0-52.0); HEMOGLOBIN. 8.9 g/dL (14.0-18.0); LYMPHOCYTES % 12.4 % (20.0-50.0); MEAN CORPUSCULAR HEMOGLOBIN 29.2 pg (28.0-32.0); MEAN CORPUSCULAR VOLUME 87.2 fL (80.0-94.0); MEAN PLATELET VOLUME 7.5 fl (7.4-10.4); NEUTROPHILS % 77.2 % (40.0-76.0); PLATELET 667 x1000/uL (130-400); RED BLOOD CELL COUNT 3.04 mill/uL (4.7-6.1); RED CELL DISTRIBUTION WIDTH 16.1 % (11.6-14.6)
[2021-06-17] MEDS: PIPERACILLIN/TAZOBACTAM 3.375 G in DEXTROSE 5% WATER 50 ML IV SCH ×3 (06:41→21:59)
[2021-06-17] MEDS: SUCRALFATE 1 G/10 ML UDC PO SCH ×4 (06:41→22:00)
[2021-06-17] MEDS: ACETAMINOPHEN 325MG TABLET PO PRN (09:30)
[2021-06-17] MEDS: PANTOPRAZOLE SODIUM 40 MG/VIAL IV SCH ×2 (09:30→21:58)
[2021-06-17] MEDS: METOPROLOL TARTRATE 25MG TABLET PO SCH ×2 (09:30→21:59)
[2021-06-17] MEDS: ENOXAPARIN 80MG/0.8ML SYR SUBCUT SCH ×2 (09:31→22:03)
[2021-06-18 04:00] VITALS: BP 115/74
[2021-06-18 04:07] LABS: OVA & PARASITE EXAM Final report (.)
[2021-06-18] MEDS: PIPERACILLIN/TAZOBACTAM 3.375 G in DEXTROSE 5% WATER 50 ML IV SCH ×3 (05:20→21:53)
[2021-06-18 07:40] LABS: BASOPHILS % 1.3 % (0.0-2.0); EOSINOPHILS % 3.5 % (0.0-5.0); HEMATOCRIT. 28.9 % (42.0-52.0); HEMOGLOBIN. 9.7 g/dL (14.0-18.0); LYMPHOCYTES % 14.5 % (20.0-50.0); MEAN CORPUSCULAR VOLUME 86.2 fL (80.0-94.0); MEAN PLATELET VOLUME 7.6 fl (7.4-10.4); NEUTROPHILS % 74.7 % (40.0-76.0); PLATELET 766 x1000/uL (130-400); RED BLOOD CELL COUNT 3.35 mill/uL (4.7-6.1); RED CELL DISTRIBUTION WIDTH 16.8 % (11.6-14.6)
[2021-06-18 07:48] LABS: CHLORIDE 105 mEq/L (98-107)
[2021-06-18 08:00] VITALS: BP 126/81
[2021-06-18] MEDS: SUCRALFATE 1 G/10 ML UDC PO SCH ×4 (08:31→21:53)
[2021-06-18] MEDS: PANTOPRAZOLE SODIUM 40 MG/VIAL IV SCH ×2 (08:31→21:53)
[2021-06-18] MEDS: ENOXAPARIN 80MG/0.8ML SYR SUBCUT SCH ×2 (08:31→21:53)
[2021-06-18] MEDS: METOPROLOL TARTRATE 25MG TABLET PO SCH ×2 (08:32→21:53)
[2021-06-18 12:00] VITALS: BP 122/80
[2021-06-18 16:00] VITALS: BP 119/83
[2021-06-18 20:00] VITALS: BP 116/77
[2021-06-19] VITALS: BP 122/77
[2021-06-19 04:00] VITALS: BP 121/84
[2021-06-19] MEDS: SUCRALFATE 1 G/10 ML UDC PO SCH ×4 (06:25→21:38)
[2021-06-19] MEDS: PIPERACILLIN/TAZOBACTAM 3.375 G in DEXTROSE 5% WATER 50 ML IV SCH ×3 (06:25→21:38)
[2021-06-19 06:45] LABS: CHLORIDE 106 mEq/L (98-107)
[2021-06-19 07:45] LABS: MEAN CORPUSCULAR VOLUME 86.5 fL (80.0-94.0); MEAN PLATELET VOLUME 7.8 fl (7.4-10.4); PLATELET 671 x1000/uL (130-400); RED CELL DISTRIBUTION WIDTH 16.6 % (11.6-14.6)
[2021-06-19 08:09] VITALS: BP 118/83
[2021-06-19] MEDS: PANTOPRAZOLE SODIUM 40 MG/VIAL IV SCH ×2 (08:50→21:38)
[2021-06-19] MEDS: METOPROLOL TARTRATE 25MG TABLET PO SCH ×2 (08:51→21:38)
[2021-06-19] MEDS: ENOXAPARIN 80MG/0.8ML SYR SUBCUT SCH ×2 (08:51→21:38)
[2021-06-19 11:55] VITALS: BP 114/83
[2021-06-19 13:46] LABS: PLATELET ESTIMATE INCREASED
[2021-06-19 16:11] VITALS: BP 131/90
[2021-06-19 20:00] VITALS: BP 128/81
[2021-06-20] VITALS: BP 128/78
[2021-06-20 04:00] VITALS: BP 119/81
[2021-06-20] MEDS: PIPERACILLIN/TAZOBACTAM 3.375 G in DEXTROSE 5% WATER 50 ML IV SCH ×3 (05:49→21:40)
[2021-06-20] MEDS: SUCRALFATE 1 G/10 ML UDC PO SCH ×4 (05:49→21:40)
[2021-06-20 06:04] LABS: BASOPHILS % 1.4 % (0.0-2.0); EOSINOPHILS % 2.8 % (0.0-5.0); HEMATOCRIT. 25.8 % (42.0-52.0); HEMOGLOBIN. 8.7 g/dL (14.0-18.0); LYMPHOCYTES % 17.6 % (20.0-50.0); MEAN CORPUSCULAR HEMOGLOBIN 29.1 pg (28.0-32.0); MEAN CORPUSCULAR VOLUME 85.9 fL (80.0-94.0); MEAN PLATELET VOLUME 7.5 fl (7.4-10.4); MONOCYTES % 6.6 % (2.0-8.0); NEUTROPHILS % 71.6 % (40.0-76.0); PLATELET 673 x1000/uL (130-400); RED CELL DISTRIBUTION WIDTH 16.8 % (11.6-14.6)
[2021-06-20 06:16] LABS: CHLORIDE 106 mEq/L (98-107)
[2021-06-20 08:59] VITALS: BP 131/91
[2021-06-20] MEDS: PANTOPRAZOLE SODIUM 40 MG/VIAL IV SCH ×2 (09:43→21:40)
[2021-06-20] MEDS: ENOXAPARIN 80MG/0.8ML SYR SUBCUT SCH ×2 (09:43→21:40)
[2021-06-20] MEDS: METOPROLOL TARTRATE 25MG TABLET PO SCH ×2 (09:43→21:40)
[2021-06-20 12:59] VITALS: BP 125/84
[2021-06-20 15:37] VITALS: BP 125/77
[2021-06-20 20:00] VITALS: BP 128/76
[2021-06-21] VITALS: BP 119/78
[2021-06-21 04:00] VITALS: BP 128/76
[2021-06-21] MEDS: PIPERACILLIN/TAZOBACTAM 3.375 G in DEXTROSE 5% WATER 50 ML IV SCH (06:23)
[2021-06-21] MEDS: SUCRALFATE 1 G/10 ML UDC PO SCH ×4 (06:23→21:42)
[2021-06-21 08:00] VITALS: BP 126/82
[2021-06-21 08:47] LABS: BASOPHILS % 1.7 % (0.0-2.0); EOSINOPHILS % 2.5 % (0.0-5.0); HEMATOCRIT. 24.7 % (42.0-52.0); HEMOGLOBIN. 8.6 g/dL (14.0-18.0); LYMPHOCYTES % 17.5 % (20.0-50.0); MEAN CORPUSCULAR HEMOGLOBIN 30.4 pg (28.0-32.0); MEAN CORPUSCULAR VOLUME 87.1 fL (80.0-94.0); MEAN PLATELET VOLUME 7.4 fl (7.4-10.4); MONOCYTES % 6.6 % (2.0-8.0); NEUTROPHILS % 71.7 % (40.0-76.0); PLATELET 614 x1000/uL (130-400); RED BLOOD CELL COUNT 2.83 mill/uL (4.7-6.1)
[2021-06-21] MEDS: ENOXAPARIN 80MG/0.8ML SYR SUBCUT SCH ×2 (09:01→21:43)
[2021-06-21] MEDS: PANTOPRAZOLE SODIUM 40 MG/VIAL IV SCH ×2 (09:01→21:42)
[2021-06-21] MEDS: METOPROLOL TARTRATE 25MG TABLET PO SCH ×2 (09:01→21:43)
[2021-06-21 09:07] LABS: CHLORIDE 105 mEq/L (98-107)
[2021-06-21 12:00] VITALS: BP 120/89
[2021-06-21 16:00] VITALS: BP 130/99
[2021-06-21 20:00] VITALS: BP 129/92
[2021-06-22 00:13] VITALS: BP 126/79
[2021-06-22 04:00] VITALS: BP 122/85
[2021-06-22] MEDS: SUCRALFATE 1 G/10 ML UDC PO SCH ×4 (06:19→21:13)
[2021-06-22 07:17] LABS: BASOPHILS % 1.9 % (0.0-2.0); EOSINOPHILS % 1.9 % (0.0-5.0); HEMATOCRIT. 24.3 % (42.0-52.0); HEMOGLOBIN. 8.6 g/dL (14.0-18.0); MEAN CORPUSCULAR HEMOGLOBIN 30.7 pg (28.0-32.0); MEAN CORPUSCULAR VOLUME 86.4 fL (80.0-94.0); MEAN PLATELET VOLUME 7.2 fl (7.4-10.4); NEUTROPHILS % 69.2 % (40.0-76.0); PLATELET 570 x1000/uL (130-400); RED BLOOD CELL COUNT 2.81 mill/uL (4.7-6.1)
[2021-06-22 07:49] LABS: CHLORIDE 105 mEq/L (98-107)
[2021-06-22 08:00] VITALS: BP 128/87
[2021-06-22] MEDS: ENOXAPARIN 80MG/0.8ML SYR SUBCUT SCH ×2 (08:42→21:25)
[2021-06-22] MEDS: PANTOPRAZOLE SODIUM 40 MG/VIAL IV SCH ×2 (08:43→21:13)
[2021-06-22] MEDS: METOPROLOL TARTRATE 25MG TABLET PO SCH ×2 (08:43→21:13)
[2021-06-22 12:00] VITALS: BP_SYST 121; BP_SYST 163; BP_DIAS 118; BP_DIAS 83
[2021-06-22 16:00] VITALS: BP 133/93
[2021-06-22] MEDS: PIPERACILLIN/TAZOBACTAM 3.375 G in DEXTROSE 5% WATER 50 ML IV SCH ×2 (16:34→23:18)
[2021-06-22 20:00] VITALS: BP 131/90
[2021-06-23] VITALS: BP 123/83
[2021-06-23 04:00] VITALS: BP 128/81
[2021-06-23] MEDS: PIPERACILLIN/TAZOBACTAM 3.375 G in DEXTROSE 5% WATER 50 ML IV SCH ×3 (06:18→22:22)
[2021-06-23] MEDS: SUCRALFATE 1 G/10 ML UDC PO SCH ×4 (07:08→22:07)
[2021-06-23 08:00] VITALS: BP 139/96
[2021-06-23] MEDS: PANTOPRAZOLE SODIUM 40 MG/VIAL IV SCH ×2 (09:45→22:08)
[2021-06-23] MEDS: METOPROLOL TARTRATE 25MG TABLET PO SCH ×2 (09:45→22:08)
[2021-06-23] MEDS: ENOXAPARIN 80MG/0.8ML SYR SUBCUT SCH ×2 (09:46→22:09)
[2021-06-23 12:00] VITALS: BP 117/75
[2021-06-23] MEDS ORDERED: IOHEXOL-300 50 ML BOTTLE IV ONE (15:13)
[2021-06-23 16:00] VITALS: BP 131/86
[2021-06-23 21:00] VITALS: BP 126/88
[2021-06-24] MEDS: SUCRALFATE 1 G/10 ML UDC PO SCH (06:15)
[2021-06-24] MEDS: PIPERACILLIN/TAZOBACTAM 3.375 G in DEXTROSE 5% WATER 50 ML IV SCH ×2 (06:15→13:52)
[2021-06-24 08:00] VITALS: BP 141/91
[2021-06-24] MEDS: ENOXAPARIN 80MG/0.8ML SYR SUBCUT SCH (10:03)
[2021-06-24] MEDS: PANTOPRAZOLE SODIUM 40 MG/VIAL IV SCH (10:04)
[2021-06-24] MEDS: METOPROLOL TARTRATE 25MG TABLET PO SCH (10:05)
[2021-06-24 11:53] VITALS: BP 128/84
[2021-06-24 13:58] VITALS: BP 128/84
[2021-06-24 16:00] VITALS: BP 120/80
[2021-06-24] MEDS ORDERED: ENOXAPARIN 60MG/0.6ML SYR SUBCUT SCH (21:00)
== END 2021-06-24 18:31 | disposition home or self-care (01) | DRG 134 ==
LOC: ER 09:51 → EDBEDREQTM 13:36 → EDBEDREQ 13:36 → ENRESERV 16:36 → 6WST 18:30
PROVIDERS: ADMIT Internal Medicine; ATTEND Internal Medicine
PROC: 0DB78ZX Excision of Stomach, Pylorus, Via Natural or Artificial Opening Endoscopic, Diagnostic (ICD-10-PCS; principal; 2021-06-10)
PROC: 0W9G30Z Drainage of Peritoneal Cavity with Drainage Device, Percutaneous Approach (ICD-10-PCS; 2021-06-13)
DX: I26.99 Other pulmonary embolism without acute cor pulmonale (principal); J96.01 Acute respiratory failure with hypoxia; A41.51 Sepsis due to Escherichia coli [E. coli]; K65.1 Peritoneal abscess; E44.0 Moderate protein-calorie malnutrition; E87.1 Hypo-osmolality and hyponatremia; D63.8 Anemia in other chronic diseases classified elsewhere; N17.9 Acute kidney failure, unspecified; K80.20 Calculus of gallbladder without cholecystitis without obstruction; K29.70 Gastritis, unspecified, without bleeding; D50.0 Iron deficiency anemia secondary to blood loss (chronic); D18.03 Hemangioma of intra-abdominal structures; Z20.822 Contact with and (suspected) exposure to COVID-19; K44.9 Diaphragmatic hernia without obstruction or gangrene; F10.10 Alcohol abuse, uncomplicated; R74.01 Elevation of levels of liver transaminase levels; B96.20 Unspecified Escherichia coli [E. coli] as the cause of diseases classified elsewhere; K76.0 Fatty (change of) liver, not elsewhere classified; R73.03 Prediabetes; Z87.891 Personal history of nicotine dependence; Z68.26 Body mass index [BMI] 26.0-26.9, adult
CPT/HCPCS: 36415; 71045; 71275; 74176; 76700; 77012; 80048; 80053; 80061; 80076; 80202; 80305; 80320; 81003; 82105; 82270; 82550; 82553; 82607; 82728; 82746; 83036; 83540; 83550; 83735; 83880; 84100; 84484; 85025; 85044; 85379; 87015; 87045; 87077; 87177; 87186; 87209; 87426; 87427; 87449; 87493; 88305; 88312; 88313; 89055; 93005; 93306; 93970; 97162; 97166; 99152; 99153; 99285; C1769; C1893; C9113; J1650; J2185; J2270; J2405; J2543; J3010; J3370; J3490; J7030; J7040; J7050; J7060; L8514; Q9963; Q9967; A4315; G0480; G0500

== ENCOUNTER 2021-07-03 11:31 | Emergency (ER) | payer MEDICAID, OTHER ==
[~2021-07-03] VITALS: Ht 170.2 cm; Wt 86.0 kg
[2021-07-03 13:00] LABS: BASOPHILS % 1.7 % (0.0-2.0); EOSINOPHILS % 1.2 % (0.0-5.0); HEMATOCRIT. 28.9 % (42.0-52.0); LYMPHOCYTES % 23.2 % (20.0-50.0); MEAN CORPUSCULAR HEMOGLOBIN 30.8 pg (28.0-32.0); MEAN CORPUSCULAR VOLUME 88.8 fL (80.0-94.0); MEAN PLATELET VOLUME 7.6 fl (7.4-10.4); MONOCYTES % 7.3 % (2.0-8.0); NEUTROPHILS % 66.6 % (40.0-76.0); PLATELET 322 x1000/uL (130-400); RED BLOOD CELL COUNT 3.26 mill/uL (4.7-6.1); RED CELL DISTRIBUTION WIDTH 18.8 % (11.6-14.6)
[2021-07-03 13:06] LABS: CHLORIDE 107 mEq/L (98-107)
[2021-07-03 15:06] VITALS: BP 145/89
== END 2021-07-03 15:08 | disposition home or self-care (01) ==
LOC: ER 11:31
DX: R10.31 Right lower quadrant pain (principal); F10.229 Alcohol dependence with intoxication, unspecified; Y90.0 Blood alcohol level of less than 20 mg/100 ml
CPT/HCPCS: 36415; 80053; 85025; 99283